=== PATIENT | male | born 1985 | race Two or more races ===

== ENCOUNTER 2019-04-22 06:14 | Emergency (ER) | payer SELFPAY ==
[~2019-04-22] VITALS: Ht 180.3 cm; Wt 90.7 kg
[2019-04-22] MEDS ORDERED: NYSTATIN1 EAC9 MC (06:19)
--- NOTE | 2019-04-22 06:22 | NUR ---
ED Nurse Note: Patient in room 2. Changed to gown. Monitor attached. Complains of difficulty walking- when asked to elaborate states he feels like the ground is moving. No decreased power to legs but more like dizziness. EKG requested by MD HARRIS currently with patient. No complaints of pain. Seen at ED for same issue 3 days ago. Reports no nausea, vomitting, blurred vision or headache. the feeling of the ground shaking affects both sides of his body - not one side. No syncope. History of OCD. Per paramedics patient denies alcohol or drug use.
[2019-04-22 06:28] VITALS: BP 131/68
--- NOTE | 2019-04-22 06:38 | Emergency Room Report ---
History of Present Illness General Chief Complaint: Dizziness Source: Patient Present Illness HPI Patient is a 33-year-old male brought in by EMS after increased dizziness for the past 3 days.Patient had recent emergency visit at [facility]. He stated he was diagnosed with dehydration. He is currently taking nystatin for chronic yeast infection. He reports being on this medication for several years. He reports having intermittent episodes of numbness and tingling to his extremities. He states this is been intermittent. He denies any diplopia or visual changes. He had not been vomiting or having diarrhea. Denies any current chest discomfort or shortness of breath.He reports feeling weak all over. He had not been febrile. He denies any changes in his weight. Allergies: Coded Allergies: No Known Allergies (Unverified , 04/22/19) Patient History Past Medical History: see triage record Reviewed Nursing Documentation: PMH: Agreed; PSxH: Agreed Nursing Documentation-PM Past Medical History: No Stated History Review of Systems All Other Systems: negative except mentioned in HPI Physical Exam Vital Signs Date Time Temp Pulse Resp B/P (MAP) Pulse Ox O2 Delivery O2 Flow Rate FiO2 04/22/19 06:14 97.3 76 14 145/76 (99) 96 Room Air Sp02 EP Interpretation: reviewed, normal General Appearance: normal inspection, well appearing, no apparent distress, alert, GCS 15, obese Head: atraumatic ENT: normal ENT inspection, hearing grossly normal, normal voice Neck: normal inspection, full range of motion, supple, no bony tend Respiratory: normal inspection, lungs clear, normal breath sounds, no respiratory distress, no retraction, no wheezing Cardiovascular #1: regular rate, rhythm, no edema Gastrointestinal: normal inspection, normal bowel sounds, non tender, soft, no guarding, no hernia Genitourinary: no CVA tenderness Musculoskeletal: normal inspection, back normal, normal range of motion Neurologic: normal inspection, alert, oriented x3, responsive, box fabricator III-XII nml as tested, speech normal Psychiatric: normal inspection, judgement/insight normal, mood/affect normal Medical Decision Making Diagnostic Impression: Primary Impression: Dizziness Additional Impressions: Dehydration Peripheral neuropathy ER Course Patient presented for generalized weakness. Differential diagnosis included was not limited to anemia, urinary tract infection, electrolyte abnormality, hypothyroidism, myocardial infarction, myasthenia gravis, dehydration, among others. Because of complexity of patient's case laboratory tests and imaging studies were ordered. Patient was seen by me initially on arrival. He was noted to have no apparent distress. He is able to move all his extremities. I discussed CT imaging with the patient which he declined.Patient was noted to have a Barrett reflex on the right upper extremity. He does not have any truncal ataxia or discoordination of his hands. He has no noted tremors. Patient does report having a prior history of chronic lead elevation. This may somewhat explain the patient's symptoms of numbness to his extremities. Patient was advised to have neurology follow-up for further evaluation including MRI. Patient was advised to return if he had any worsening condition. He does not appear to have any definite bacterial infection at this time although he does have a slightly increased white blood count. He was advised to return if worse. Labs Test 04/22/19 07:00 04/22/19 08:15 White Blood Count 12.8 K/UL (4.8-10.8) Red Blood Count 5.19 M/UL (4.70-6.10) Hemoglobin 14.8 G/DL (14.2-18.0) Hematocrit 44.3 % (42.0-52.0) Mean Corpuscular Volume 85 FL (80-99) Mean Corpuscular Hemoglobin 28.6 PG (27.0-31.0) Mean Corpuscular Hemoglobin Concent 33.5 G/DL (32.0-36.0) Red Cell Distribution Width 11.5 % (11.6-14.8) Platelet Count 239 K/UL (150-450) Mean Platelet Volume 9.4 FL (6.5-10.1) Neutrophils (%) (Auto) 46.0 % (45.0-75.0) Lymphocytes (%) (Auto) 46.6 % (20.0-45.0) Monocytes (%) (Auto) 3.8 % (1.0-10.0) Eosinophils (%) (Auto) 2.4 % (0.0-3.0) Basophils (%) (Auto) 1.1 % (0.0-2.0) Erythrocyte Sedimentation Rate 8 MM/HR (0-15) Sodium Level 138 MMOL/L (136-145) Potassium Level 3.9 MMOL/L (3.5-5.1) Chloride Level 102 MMOL/L (98-107) Carbon Dioxide Level 30 MMOL/L (21-32) Anion Gap 6 mmol/L (5-15) Blood Urea Nitrogen 16 mg/dL (7-18) Creatinine 1.2 MG/DL (0.55-1.30) Estimat Glomerular Filtration Rate > 60 mL/min (>60) Glucose Level 90 MG/DL (74-106) Calcium Level 9.2 MG/DL (8.5-10.1) Magnesium Level 2.1 MG/DL (1.8-2.4) Total Bilirubin 0.4 MG/DL (0.2-1.0) Aspartate Amino Transf (AST/SGOT) 35 U/L (15-37) Alanine Aminotransferase (ALT/SGPT) 69 U/L (12-78) Alkaline Phosphatase 109 U/L (46-116) Total Protein 8.1 G/DL (6.4-8.2) Albumin 3.6 G/DL (3.4-5.0) Globulin 4.5 g/dL Albumin/Globulin Ratio 0.8 (1.0-2.7) Thyroid Stimulating Hormone (TSH) 2.707 uiU/mL (0.358-3.740) Urine Color Pale yellow Urine Appearance Clear Urine pH 7 (4.5-8.0) Urine Specific [place] 1.005 (1.005-1.035) Urine Protein Negative (NEGATIVE) Urine Glucose (UA) Negative (NEGATIVE) Urine Ketones Negative (NEGATIVE) Urine Blood Negative (NEGATIVE) Urine Nitrite Negative (NEGATIVE) Urine Bilirubin Negative (NEGATIVE) Urine Urobilinogen Normal MG/DL (0.0-1.0) Urine Leukocyte Esterase Negative (NEGATIVE) Urine RBC 0 /HPF (0 - 0) Urine WBC 0 /HPF (0 - 0) Urine Squamous Epithelial Cells None /LPF (NONE/OCC) Urine Bacteria None /HPF (NONE) EKG Diagnostic Results Rate: normal - 77 Rhythm: NSR ST Segments: no acute changes Last Vital Signs Date Time Temp Pulse Resp B/P (MAP) Pulse Ox O2 Delivery O2 Flow Rate FiO2 04/22/19 06:14 97.3 76 14 145/76 (99) 96 Room Air Status: improved Disposition: HOME, SELF-CARE Condition: Stable Sean Herring MD Apr 22, 2019 06:38
--- NOTE | 2019-04-22 07:19 | NUR ---
ED Nurse Note: REPORT RECEIVED FROM ANU HURT. PT LAYING PEACEFULLY IN BED IN NAD. AOX4. VSS.
[2019-04-22 07:20] VITALS: BP 113/60
[2019-04-22 07:41] LABS: BASOPHILS % (AUTO) 1.1 % (0.0-2.0); EOSINOPHILS % (AUTO) 2.4 % (0.0-3.0); HEMATOCRIT 44.3 % (42.0-52.0); HEMOGLOBIN 14.8 G/DL (14.2-18.0); LYMPHOCYTES % (AUTO) 46.6 % (20.0-45.0); MEAN CORPUSCULAR VOLUME 85 FL (80-99); MONOCYTES % (AUTO) 3.8 % (1.0-10.0); PLATELET COUNT 239 K/UL (150-450); RED BLOOD COUNT 5.19 M/UL (4.70-6.10); RED CELL DISTRIBUTION WIDTH 11.5 % (11.6-14.8); WHITE BLOOD COUNT 12.8 K/UL (4.8-10.8)
[2019-04-22 07:53] LABS: ANION GAP 6 mmol/L (5-15); BLOOD UREA NITROGEN 16 mg/dL (7-18); CALCIUM 9.2 MG/DL (8.5-10.1); CARBON DIOXIDE 30 MMOL/L (21-32); CHLORIDE 102 MMOL/L (98-107); CREATININE 1.2 MG/DL (0.55-1.30); POTASSIUM 3.9 MMOL/L (3.5-5.1); SODIUM 138 MMOL/L (136-145)
[2019-04-22 08:05] LABS: ALANINE AMINOTRANSFERASE 69 U/L (12-78); ALBUMIN 3.6 G/DL (3.4-5.0); ALBUMIN/GLOBULIN RATIO 0.8 (1.0-2.7); ALKALINE PHOSPHATASE 109 U/L (46-116); ASPARTATE AMINO TRANSFERASE 35 U/L (15-37); BILIRUBIN,TOTAL 0.4 MG/DL (0.2-1.0)
--- NOTE | 2019-04-22 08:15 | NUR ---
ED Nurse Note: PT RESTING PEACEFULLY IN BED IN NAD. VSS.
[2019-04-22 08:49] LABS: APPEARANCE,URINE CLEAR; BILIRUBIN, URINE NEGATIVE (NEGATIVE); COLOR,URINE PALE YELLOW; GLUCOSE, URINE (UA) NEGATIVE (NEGATIVE); KETONES,URINE NEGATIVE (NEGATIVE); LEUKOCYTE ESTERASE ,URINE NEGATIVE (NEGATIVE); NITRITE,URINE NEGATIVE (NEGATIVE); PH,URINE 7 (4.5-8.0); PROTEIN,URINE NEGATIVE (NEGATIVE); UROBILINOGEN,URINE NORMAL MG/DL (0.0-1.0)
--- NOTE | 2019-04-22 09:28 | NUR ---
ED Nurse Note: PT LAYING PEACEFULLY IN BED IN NAD. AOX4. DISCHARGE PAPERWORK EXPLAINED TO PT. PT VERBALIZES UNDERSTANDING AND ALL QUESTIONS ANSWERED. DISCHARGE PAPERWORK GIVEN TO PT AND ID WRISTBAND REMOVED. PT WALKED OUT OF ER WITH STEADY GAIT AND ALL BELONGINGS.
[2019-04-22 09:29] VITALS: BP 118/64
--- NOTE | 2019-04-22 17:09 | Cardiology Report ---
APPROVED REPORT EKG Measurement Heart [id number] Normal sinus rhythm Normal ECG
== END 2019-04-22 09:36 | disposition home or self-care (01) ==
LOC: EDBD 06:14 → EMR 06:46
DX: E86.0 Dehydration (principal); R42 Dizziness and giddiness; G62.9 Polyneuropathy, unspecified
CPT/HCPCS: 36415; 80053; 81001; 83735; 84443; 85025; 85651; 93005; 99284

== ENCOUNTER 2019-05-08 02:49 | Emergency (ER) | payer SELFPAY ==
[~2019-05-08] VITALS: Ht 170.2 cm; Wt 102.1 kg
[~2019-05-08 02:49] MED LIST: NYSTATIN1 EAC9 MC
--- NOTE | 2019-05-08 02:50 | NUR ---
ED Nurse Note: pt presents to ED via EMS arrival for a panic attack. pt has had panic attacks for months and today feels that his "balance is off" and he has some dizziness. he has been seen here before and at [facility] for similar symptoms. pt reports tingling in his fingers and feeling like his "hands and head are cold."
[2019-05-08] MEDS ORDERED: SERTRALINE HCL100 MG PO (02:51)
[2019-05-08 02:52] VITALS: BP 143/88
[2019-05-08] MEDS ORDERED: VALIUM10 MG ORAL (02:52)
--- NOTE | 2019-05-08 02:56 | NUR ---
ED Nurse Note: Pt cleared by health care Provider for discharge. pt refused to sign DC paperwork, stating "I want to go to [facility]." All medical deviecs such as ID band removed. Pt is AAO x4, ambulatory and left with all personal belongings. Addendum: 05/08/19 at 0301 by SHANNAN correction: pt refused to sign AMA paperwork, understands risks of leaving and left with all of his belongings
--- NOTE | 2019-05-08 03:00 | Emergency Room Report ---
History of Present Illness General Chief Complaint: General Complaint Source: Patient Present Illness HPI Is a 33-year-old male who presents with chief complaint of anxiety and dizziness. He said is been going on for weeks. He has been to [facility] where he had blood work done an x-ray done was negative. He was here on the with normal blood work. He refused a CT scan. He is taking several benzodiazepine. He has clonazepam, Ativan and Valium. He is also taking nystatin for the last couple of years for what is intestinal yeast infection. He did not tell me how he was diagnosed with this. He said his doctor told him that he had it. Patient called 911 tonight because he said he felt dizzy. [place] like he is falling. He said he felt anxious. No fever chills but no nausea no vomiting. He also has numbness to his lower extremities. Allergies: Coded Allergies: No Known Allergies (Unverified , 04/22/19) Patient History Past Medical History: see triage record, old chart reviewed Past Surgical History: none Pertinent Family History: none Social History: Denies: smoking Immunizations: other Reviewed Nursing Documentation: PMH: Agreed; PSxH: Agreed Nursing Documentation-PMH Past Medical History: No History, Except For Review of Systems Eye: Denies: eye pain, blurred vision ENT: Denies: ear pain, nose congestion, throat swelling Respiratory: Denies: cough, shortness of breath Cardiovascular: Denies: chest pain, palpitations Gastrointestinal: Denies: abdominal pain, diarrhea, nausea, vomiting Musculoskeletal: Denies: back pain, joint pain Skin: Denies: rash Neurological: Reports: numbness, dizziness; Denies: headache Endocrine: Denies: increased thirst, increased urine Hematologic/Lymphatic: Denies: easy bruising All Other Systems: negative except mentioned in HPI Physical Exam Vital Signs Date Time Temp Pulse Resp B/P (MAP) Pulse Ox O2 Delivery O2 Flow Rate FiO2 05/08/19 02:44 97.7 84 16 143/88 (106) 95 Room Air Vitals unremarkable Sp02 EP Interpretation: reviewed, normal General Appearance: well appearing, no apparent distress, alert Head: normocephalic, atraumatic Eyes: bilateral eye PERRL, bilateral eye EOMI ENT: hearing grossly normal, normal pharynx Neck: full range of motion, supple, no meningismus Respiratory: chest non-tender, lungs clear, normal breath sounds Cardiovascular #1: regular rate, rhythm, no murmur Gastrointestinal: normal bowel sounds, non tender, no mass, no organomegaly, no bruit, non-distended Musculoskeletal: back normal, gait/station normal, normal range of motion Psychiatric: mood/affect normal Medical Decision Making Diagnostic Impression: Primary Impression: Dizziness ER Course Patient presents with dizziness. He is walking without any difficulty. He was very defensive when I asked him about taking nystatin for several years for "intestinal yeast infection." He would not tell me how it was diagnosed. He would not tell me if he had a colonoscopy or endoscopy with biopsy to confirm this. Explained to the patient that he has work-up done already. He had an MRI done already. The only thing that was not done was a CT scan. I offered to do a CT scan but patient refused. I told patient that I cannot offer him anything here. He is already taking benzodiazepine. He has no evidence of any neurological deficit. I am not comfortable offering him more benzodiazepine or see need for further tests since he had them done recently. Also told patient that may be the multiple benzodiazepine and nystatin that he is taking may be causing his symptoms. Patient was not happy with this and wanted to see another provider. I explained to the patient that I am the only doctor on at night. He said he will go to [facility]. Pt is competent to make that decision. Last Vital Signs Date Time Temp Pulse Resp B/P (MAP) Pulse Ox O2 Delivery O2 Flow Rate FiO2 05/08/19 02:44 97.7 84 16 143/88 (106) 95 Room Air Status: unchanged Disposition: AGAINST MEDICAL ADVICE Condition: Stable Robert Webb MD May 08, 2019 02:59
== END 2019-05-08 03:00 | disposition left against medical advice (07) ==
LOC: EDBD 02:49 → EMR 02:55
DX: R42 Dizziness and giddiness (principal); F41.9 Anxiety disorder, unspecified
CPT/HCPCS: 99281